=== PATIENT | female | born 2000 | race Hispanic/Latino ===

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

== ENCOUNTER 2020-06-08 21:04 | Emergency (ER) | payer MEDICAID ==
[2020-06-08 21:23] LABS: BASOPHILS % (AUTO) 0.4 % (0.0-5.0); EOSINOPHILS % (AUTO) 1.5 % (0.0-8.0); HEMATOCRIT 32.9 % (36-48); LYMPHOCYTES % (AUTO) 26.7 % (21.0-51.0); MEAN CORPUSCULAR HEMOGLOBIN 24.2 pg (27.0-33.0); MEAN CORPUSCULAR VOLUME 78.1 fL (80-100); MONOCYTES % (AUTO) 6.2 % (3.0-13.0); PLATELET COUNT (AUTO) 297 K/uL (130-400); RED BLOOD CELL COUNT(AUTO) 4.21 MIL/uL (4.00-5.50); RED CELL DISTRIBUTION WIDTH 13.2 % (11.0-15.5); WHITE BLOOD COUNT (AUTO) 10.7 K/uL (4.8-10.8)
[2020-06-08 21:33] LABS: CREATININE 0.6 mg/dL (0.5-1.5); POTASSIUM 3.9 mmol/L (3.5-5.1)
[2020-06-08 21:38] LABS: ALBUMIN 4.1 g/dL (3.5-5.0); BILIRUBIN,TOTAL 0.2 mg/dL (0.2-1.0); TOTAL PROTEIN, SERUM 7.6 g/dL (6.0-8.3)
[2020-06-08] MEDS ORDERED: ORPHENADRINE CITRATE 30 MG/ML ML ONE (21:52)
[2020-06-08] MEDS ORDERED: KETOROLAC TROMETHAMINE 30MG/ML ONE (21:52)
[2020-06-08 21:56] LABS: APPEARANCE,URINE Clear (CLEAR); BILIRUBIN,URINE Negative (NEGATIVE); COLOR,URINE Yellow (YELLOW); GLUCOSE, URINE (UA) Negative (NEGATIVE); KETONES,URINE Negative (NEGATIVE); LEUKOCYTE ESTERASE ,URINE Negative (NEGATIVE); NITRATE,URINE Negative (NEGATIVE); OCCULT BLOOD,URINE Negative (NEGATIVE); PH,URINE 6.5 (5.0-8.0); PROTEIN,URINE Negative (NEGATIVE)
[2020-06-08 21:58] LABS: HCG,QUAL RESULT NEGATIVE (NEGATIVE)
== END 2020-06-08 23:43 | disposition home or self-care (01) ==
LOC: EDH 21:04
DX: M94.0 Chondrocostal junction syndrome [Tietze] (principal); R07.89 Other chest pain
CPT/HCPCS: 36415; 71045; 80053; 81003; 81025; 84484; 85025; 93005; 96374; 96375; 99285; J1885; J2360

== ENCOUNTER → 2021-06-25 | Outpatient (CLI) | payer MEDICAID ==
[~2021-06-25] MED LIST: GADOTERATE MEGLUMINE 10 MMOL/20 ML VIAL IV ONE
== END | disposition home or self-care (01) ==
LOC: RAH 07:47
PROVIDERS: ATTEND Internal Medicine
DX: E22.1 Hyperprolactinemia (principal)
CPT/HCPCS: 70553; A9575

== ENCOUNTER 2024-10-10 21:57 | Emergency (ER) | payer MEDICAID ==
[~2024-10-10] VITALS: Ht 154.9 cm; Wt 52.2 kg
--- NOTE | 2024-10-10 23:00 | ERN ---
ED Note History of Present Illness Stated Complaint: COUGH,FEVER,CHILLS,JITTERING Chief Complaint: Congestion Time Seen by MD: 22:04 Time Seen by Midlevel: 22:45 Dictation: Ms. 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 She reports three days of cough, congestion, fever, chills, body aches, headache, decreased appetite, and nausea. She also reports dental pain right lower molar. She states she has been taking some [id number] cold medicine that she bought at [employer]. She denies having chest pain, palpitations, shortness of breath, abdominal pain, vomiting, diarrhea, dysuria, or dizziness Allergies: Coded Allergies: No Known Drug Allergies (Unverified Allergy, Unknown, 10/10/24) Emergency Care EMERGENCY REGISTRAR: None Past Medical History Past Medical History: Anemia, Other Additional Past Medical Hx: NF1 Surgical History: PSYCH History: no pertinent psych hx Social History: Negative, Lives with family LMP: Oct 10, 2024 RN Note Reviewed/Agreed w/PFSH: Yes Review of System Dictation REVIEW OF SYSTEMS: CONSTITUTIONAL: Patient denies sweats and weight changes. Reports fever, chills, fatigue, general weakness, and body aches EYES: Patient denies any visual symptoms. EARS, NOSE, AND THROAT: No difficulties with hearing. No symptoms of rhinitis or sore throat. Reports nasal congestion. Reports dental pain right lower molar/cracked with cavity CARDIOVASCULAR: Patient denies chest pains, palpitations, orthopnea and paroxysmal nocturnal dyspnea. RESPIRATORY: No dyspnea on exertion, no wheezing or cough. GI: No vomiting, diarrhea, constipation, abdominal pain, hematochezia or melena. Reports nausea : No urinary hesitancy or dribbling. No nocturia or urinary frequency. No abnormal urethral discharge. MUSCULOSKELETAL: No myalgias or arthralgias. NEUROLOGIC: No chronic headaches, no seizures. Patient denies numbness, tingling or weakness. Reports headache PSYCHIATRIC: Patient denies problems with mood disturbance. No problems with anxiety. ENDOCRINE: No excessive urination or excessive thirst. DERMATOLOGIC: Patient denies any rashes or skin changes. Initial Vital Sign VS Vital Signs Date Time Temp Pulse Resp B/P (MAP) Pulse Ox O2 Delivery O2 Flow Rate FiO2 10/10/24 22:29 98.2 76 18 108/73 99 Room Air 0 Physical Exam Dictation Vital signs: Reviewed. Afebrile Constitutional: No acute distress. Non-toxic appearing. Thin. Eating cookies. Head/Face: Normocephalic, atraumatic. Eyes: Periorbital areas with no swelling, redness, or edema. Lids and lashes are normal. Conjunctival injection is absent. Sclera anicteric. Pupils equal, round, reactive to light. ENT: Pinnas intact and no signs of trauma or erythema. Ear canals clear and no discharge. TMs no erythema. No nasal discharge or bleeding noted. Tonsils with erythema/edema; no exudates. Tongue coated white.. Uvula midline. Mucous membranes moist. Neck: Trachea midline, no masses palpated, and no cervical lymphadenopathy. No swelling. Supple, full range of motion. Chest/Axilla: No tenderness, no crepitus, no paradoxical movement, no retractions. Cardiovascular: Regular rate, regular rhythm, no murmur, no gallops. Symmetric pulses. No peripheral edema. Respiratory: Respirations even and unlabored. Lung sounds clear; no wheezes, rales or rhonchi. Room air SpO2 99% Gastrointestinal: Inspection is normal. No distention is appreciated. Bowel sounds are normal. No mass or organomegaly . There is no tenderness. No rebound. No rigidity. No voluntary or involuntary guarding. No Yuen's sign. Neurological: Normal speech, gross motor function intact, gross sensory function intact. No focal weakness/Paresthesia. Musculoskeletal/Extremities: All extremities have full range of motion, no pain or tenderness on palpation. Symmetric pulses. Integumentary: Intact. Skin is flushed, warm and dry. Cap refill less than 2 seconds. Results (Laboratory/Radiology) Laboratory/Radiology Laboratory Tests Test 10/10/24 22:32 Influenza Type A Antigen Negative For Type A Influenza Type B Antigen Negative For Type B SARS-CoV-2 Antigen (Rapid) PRESUMPTIVE NEGATIVE Group A Streptococcus Rapid negative (NEGATIVE) ED Course ED Course Orders Procedure Category Date Status Time Covid19 (Sars Antigen LAB 10/10/24 Complete Rapid) 22:32 Influenza Type A & B, LAB 10/10/24 Complete Rapid 22:32 Rapid (Group A Strep) LAB 10/10/24 Complete 22:32 Vital Signs Date Time Temp Pulse Resp B/P (MAP) Pulse Ox O2 Delivery O2 Flow Rate FiO2 10/10/24 22:29 98.2 76 18 108/73 99 Room Air 0 Uneventful ED course. Vital signs remained stable; afebrile and normotensive with room air SpO2 99-100%. Laboratory findings as noted below. Coronavirus SARs antigen and influenza A/B are negative. Strep negative. She does have a cracked/broken tooth right lower #30 with irritation/swelling to the gumline suggestive of early abscess formation. She received initial dose pen VK. Findings were discussed with patient and all questions were answered. Medical Decision Making MDM MDM: Differential diagnosis: Influenza A/B, COVID, strep Rationale: Tests considered and ordered secondary to shared decision making include: Lab Previous outside records reviewed: Old ER visits. Risk of complication and/or morbidity or mortality of patient management: None Medications-Per medication reconciliation Need for hospitalization: Patient does not meet criteria for hospitalization. Need for emergency major/minor surgery: No There are no social concerns with this patient. Prescription drug management: Ibuprofen, pen VK Prescriptions will include symptomatic care Patient's prior external medical records from other ER visits were reviewed by me as indicated. Prior testing and results from previous visits were reviewed. Prior tests were taken into account with medical decision making and resource utilization, independent historian/historians were used to obtain complete medical history. I independently interpreted the test that were performed, results were reviewed by me and considered findings on radiology if ordered. Medical management and examination interpretation discussions were had by me with other qualified healthcare professionals as indicated for the patient's care. DX & DISP Disposition: Discharge Departure Impression: Primary Impression: Viral upper respiratory illness Additional Impression: Infected dental caries Condition: Stable Scripts Ibuprofen (Ibuprofen) 600 Mg Tablet 600 MG PO q8 hours PRN PRN for PAIN, #12 TAB Prov: MARK ANTHONY MARTINEZ CRIBBER 10/10/24 Penicillin V Potassium (Penicillin V Potassium) 500 Mg Tablet 1 TAB PO TID for 10 Days, #30 TAB 0 Refills Prov: MARK ANTHONY MARTINEZ CRIBBER 10/10/24 Additional Instructions: Rest and isolate at home until symptoms are resolving and you have been fever free times 24 hours. Warm saltwater gargles 3 times a day. Continue with antibiotic pen VK 3 times daily times 10 days. May take ibuprofen every 8 hours as needed for discomfort. You will need to follow up with a dentist. Referrals: MADELINE OGDEN DO (PCP) MARK ANTHONY MARTINEZ NP Oct 10, 2024 22:59
[2024-10-10 23:08] LABS: RAPID GROUP A STREP negative (NEGATIVE)
[2024-10-10 23:15] LABS: INFLUENZA TYPE A Negative For Type A (NEGATIVE); INFLUENZA TYPE B Negative For Type B (NEGATIVE)
[2024-10-10 23:16] LABS: COVID19 (SARS ANTIGEN RAPID) PRESUMPTIVE NEGATIVE (NEGATIVE)
[2024-10-10] MEDS ORDERED: IBUP-2070 PO (23:27)
[2024-10-10] MEDS ORDERED: PENI500T2 PO (23:27)
[2024-10-10] MEDS: PENICILLIN V POTASSIUM 500 MG TABLET PO ONE (23:47)
[2024-10-10 23:50] VITALS: BP 117/65; PULSE 78; RESP 18; TEMP 98.9; O2SAT 98
== END 2024-10-10 23:58 | disposition home or self-care (01) ==
LOC: EDH 21:57
DX: J06.9 Acute upper respiratory infection, unspecified (principal); B97.89 Other viral agents as the cause of diseases classified elsewhere; K04.7 Periapical abscess without sinus; Z20.822 Contact with and (suspected) exposure to COVID-19
CPT/HCPCS: 87426; 87804; 87880; 99284

== ENCOUNTER 2024-12-10 19:00 | Emergency (ER) | payer MEDICAID ==
[~2024-12-10] VITALS: Ht 154.9 cm; Wt 52.2 kg
[~2024-12-10 19:00] MED LIST changes: -GADOTERATE MEGLUMINE 10 MMOL/20 ML VIAL IV ONE; +IBUP-2070 PO; +PENI500T2 PO
--- NOTE | 2024-12-10 19:55 | ERN ---
ED Note History of Present Illness Stated Complaint: LEFT EARACHE Chief Complaint: Earache Time Seen by MD: 19:43 Time Seen by Midlevel: 19:50 Dictation: Ms. Mason is a 24-year-old female with history of neurofibromatosis type 1 and anemia who presented to the emergency department this evening for evaluation of headache. She reports two days of cough, sore throat, headache, and left earache. She thinks she might have had a low grade fever. She denies having shortness of breath, cough, chest pain, palpitations, abdominal pain, nausea, vomiting, diarrhea, dysuria, rash, stiff neck or dizziness. Allergies: Coded Allergies: No Known Drug Allergies (Unverified Allergy, Unknown, 10/10/24) Home Meds Active Scripts Amoxicillin (Amoxicillin) 500 Mg Capsule, 1 CAP PO TID for 10 Days, #30 CAP 0 Refills Prov:MARK ANTHONY MARTINEZ ANNE 12/10/24 Ibuprofen (Ibuprofen) 600 Mg Tablet, 600 MG PO q8 hours PRN PRN for PAIN, #12 TAB 0 Refills Prov:MARK ANTHONY MARTINEZ ANNE 12/10/24 Ibuprofen (Ibuprofen) 600 Mg Tablet, 600 MG PO q8 hours PRN PRN for PAIN, #12 TAB Prov:MARK ANTHONY MARTINEZ PANEL ASSEMBLER 10/10/24 Penicillin V Potassium (Penicillin V Potassium) 500 Mg Tablet, 1 TAB PO TID for 10 Days, #30 TAB 0 Refills Prov:MARK ANTHONY MARTINEZ PANEL ASSEMBLER 10/10/24 Past Medical History Past Medical History: Anemia, Other Additional Past Medical Hx: NF1 Surgical History: PSYCH History: no pertinent psych hx Social History: Negative, Lives with family RN Note Reviewed/Agreed w/PFSH: Yes Review of System Dictation REVIEW OF SYSTEMS: CONSTITUTIONAL: Patient denies chills, sweats and weight changes. States she believes she may have had low-grade fever EYES: Patient denies any visual symptoms. EARS, NOSE, AND THROAT: No difficulties with hearing. No symptoms of rhinitis. Reports sore scratchy throat. Reports left earache; rated 8/10 CARDIOVASCULAR: Patient denies chest pains, palpitations, orthopnea and paroxysmal nocturnal dyspnea. RESPIRATORY: No dyspnea on exertion, no wheezing reports nonproductive cough. GI: No nausea, vomiting, diarrhea, constipation, abdominal pain, hematochezia or melena. : No urinary hesitancy or dribbling. No nocturia or urinary frequency. No abnormal urethral discharge. MUSCULOSKELETAL: No myalgias or arthralgias. NEUROLOGIC: No chronic headaches, no seizures. Patient denies numbness, tingling or weakness. Denies stiff neck. Reports headache PSYCHIATRIC: Patient denies problems with mood disturbance. No problems with anxiety. ENDOCRINE: No excessive urination or excessive thirst. DERMATOLOGIC: Patient denies any rashes or skin changes. Initial Vital Sign VS Vital Signs Date Time Temp Pulse Resp B/P (MAP) Pulse Ox O2 Delivery O2 Flow Rate FiO2 12/10/24 19:01 98.4 82 16 116/81 100 Room Air 12/10/24 19:11 0 21 Physical Exam Dictation Vital signs: Reviewed. Temperature 99.3 Constitutional: No acute distress. Non-toxic appearing. Pleasant Head/Face: Normocephalic, atraumatic. Eyes: Periorbital areas with no swelling, redness, or edema. Lids and lashes are normal. Conjunctival injection is absent. Sclera anicteric. Pupils equal, round, reactive to light. ENT: Pinnas intact and no signs of trauma or erythema. Ear canals clear and no discharge. TMs no erythema. No nasal discharge or bleeding noted. Oropharynx with no exudate, redness, swelling, masses, exudates, or evidence of obstruction. Uvula midline. Mucous membranes moist. Neck: Trachea midline, no masses palpated, and no cervical lymphadenopathy. No swelling. Supple, full range of motion. Chest/Axilla: No tenderness, no crepitus, no paradoxical movement, no retrac tions. Cardiovascular: Regular rate, regular rhythm, no murmur, no gallops. Symmetric pulses. No peripheral edema. Normotensive Respiratory: Respirations even and unlabored. Lung sounds clear; no wheezes, rales or rhonchi. Room air SpO2 100% Gastrointestinal: Inspection is normal. No distention is appreciated. Bowel sounds are normal. No mass or organomegaly . There is no tenderness. No rebound. No rigidity. No voluntary or involuntary guarding. No Yuen's sign. Neurological: Normal speech, gross motor function intact, gross sensory function intact. No focal weakness/Paresthesia. Musculoskeletal/Extremities: All extremities have full range of motion, no pain or tenderness on palpation. Symmetric pulses. Integumentary: No rash Intact. Skin is pale, warm and dry. Cap refill less than 2 seconds. Results (Laboratory/Radiology) Laboratory/Radiology Laboratory Tests Test 12/10/24 20:16 Group A Streptococcus Rapid negative (NEGATIVE) Labs Reviewed?: Yes ED Course ED Course Orders Procedure Category Date Status Time Hydrocodone/Apap PHA 12/10/24 Complete 5/325 ([place] 5/325mg) 20:00 Rapid (Group A Strep) LAB 12/10/24 Complete 20:04 Current Medications Medications (Trade) Dose Ordered Sig/Jacque Route PRN Reason Start Time Stop Time Status Last Admin Dose Admin Acetaminophen/ Hydrocodone Bitart (NORco 5/325MG) 1 tab ONCE ONCE PO 12/10/24 20:00 12/10/24 20:01 DC 12/10/24 20:22 Vital Signs Date Time Temp Pulse Resp B/P (MAP) Pulse Ox O2 Delivery O2 Flow Rate FiO2 12/10/24 20:44 99.0 85 19 131/81 99 Room Air* 0 21 12/10/24 20:00 99.1 83 18 128/78 98 Room Air* 0 21 12/10/24 19:11 99.3 73 17 124/67 100 Room Air* 0 21 12/10/24 19:01 98.4 82 16 116/81 100 Room Air Uneventful ED course. Vital signs remained stable; afebrile and normotensive with room air SpO2 100%. Lung sounds are clear. Strep screen is negative. Patient received dose [place] x1 for severe ear discomfort. She is tolerating p.o. fluids well. Strep screen negative. She will start course of amoxicillin for otitis media. Findings were discussed with patient and all questions were answered. Medical Decision Making MDM MDM: Differential diagnosis: Otitis media, otitis externa, viral illness, pharyngitis Rationale: Tests considered and ordered secondary to shared decision making include: Lab Previous outside records reviewed: Old ER visits. Risk of complication and/or morbidity or mortality of patient management: None Medications-Per medication reconciliation Need for hospitalization: Patient does not meet criteria for hospitalization. Need for emergency major/minor surgery: No There are no social concerns with this patient. Prescription drug management: Amoxicillin, ibuprofen Prescriptions will include symptomatic care Patient's prior external medical records from other ER visits were reviewed by me as indicated. Prior testing and results from previous visits were reviewed. Prior tests were taken into account with medical decision making and resource utilization, independent historian/historians were used to obtain complete medical history. I independently interpreted the test that were performed, results were reviewed by me and considered findings on radiology if ordered. Medical management and examination interpretation discussions were had by me with other qualified healthcare professionals as indicated for the patient's care. DX & DISP Disposition: Discharge Departure Impression: Primary Impression: Otitis media, left Additional Impression: Pharyngitis Condition: Stable Scripts Amoxicillin (Amoxicillin) 500 Mg Capsule 1 CAP PO TID for 10 Days, #30 CAP 0 Refills Prov: MARK ANTHONY MARTINEZ NP 12/10/24 Ibuprofen (Ibuprofen) 600 Mg Tablet 600 MG PO q8 hours PRN PRN for PAIN, #12 TAB 0 Refills Prov: MARK ANTHONY MARTINEZ NP 12/10/24 Additional Instructions: Take [id number] Tylenol or ibuprofen as needed for fever/discomfort. Start amoxicillin. Rest and stay well hydrated. Avoid getting water into the affected ear (use a cotton ball with petroleum jelly when showering if needed). Avoid flying or swimming until symptoms improve. Follow up with your PCP. Return to the emergency department for any worsening of symptoms or concerns. Referrals: MADELINE OGDEN DO (PCP) Time of Disposition: 20:09 MARK ANTHONY MARTINEZ NP December 10, 2024 19:54
[2024-12-10] MEDS ORDERED: AMOX500C2 PO (20:11)
[2024-12-10] MEDS: HYDROcodone/APAP 5/325 1 TAB TABLET PO ONE (20:22)
[2024-12-10 21:50] VITALS: BP 129/87; PULSE 81; RESP 17; TEMP 98.2; O2SAT 98
== END 2024-12-10 22:10 | disposition home or self-care (01) ==
LOC: EDH 19:00
DX: H66.92 Otitis media, unspecified, left ear (principal); J02.9 Acute pharyngitis, unspecified; Z79.899 Other long term (current) drug therapy
CPT/HCPCS: 87880; 99285

== ENCOUNTER 2025-04-11 13:31 | Emergency (ER) | payer MEDICAID ==
[~2025-04-11] VITALS: Ht 154.9 cm; Wt 52.6 kg
[~2025-04-11 13:31] MED LIST changes: +AMOX500C2 PO; +IBUP-1492 PO; -IBUP-2070 PO
--- NOTE | 2025-04-11 13:38 | ERN ---
ED Note History of Present Illness Stated Complaint: CHEST WALL PAIN Chief Complaint: Chest Wall Pain Time Seen by MD: 13:33 Dictation: PATIENT IS A 25-YEAR-OLD FEMALE THAT IS STATES SHE WOKE UP TODAY WAS HAVING SOME CHEST WALL PAIN WORSE WHEN SHE COUGHED OR PRESSES ON IT. HOWEVER SHE SAYS NOW SHE HAS NO COMPLAINTS OTHER THAN SHE JUST FEELS WEAK. SHE DENIES ANY CHEST PAIN BACK PAIN NO NAUSEA VOMITING NO DIARRHEA. NO HEADACHE NO FLU-LIKE SYMPTOMS NO CHANGE IN URINATION. Allergies: Coded Allergies: No Known Drug Allergies (Unverified Allergy, Unknown, 10/10/24) Home Meds Active Scripts Amoxicillin (Amoxicillin) 500 Mg Capsule, 1 CAP PO TID for 10 Days, #30 CAP 0 Refills Prov:MARK ANTHONY MARTINEZ DIRECTOR EMPLOYMENT 12/10/24 Ibuprofen (Ibuprofen) 600 Mg Tablet, 600 MG PO q8 hours PRN PRN for PAIN, #12 TAB 0 Refills Prov:MARK ANTHONY MARTINEZ DIRECTOR EMPLOYMENT 12/10/24 Ibuprofen (Ibuprofen) 600 Mg Tablet, 600 MG PO q8 hours PRN PRN for PAIN, #12 TAB Prov:MARK ANTHONY MARTINEZ DIRECTOR EMPLOYMENT 10/10/24 Penicillin V Potassium (Penicillin V Potassium) 500 Mg Tablet, 1 TAB PO TID for 10 Days, #30 TAB 0 Refills Prov:MARK ANTHONY MARTINEZ DIRECTOR EMPLOYMENT 10/10/24 Past Medical History Past Medical History: Anemia, Other Additional Past Medical Hx: NF1 Surgical History: Social History: Negative, Lives with family History: Not Applicable RN Note Reviewed/Agreed w/PFSH: Yes Review of System Dictation CONSTITUTIONAL: NEGATIVE EXCEPT FOR HPI WEAK HEAD/FACE: NEGATIVE EXCEPT FOR HPI EENT: NEGATIVE EXCEPT FOR HPI RESPIRATORY: NEGATIVE EXCEPT FOR HPI GASTROINTESTINAL/ABDOMINAL: NEGATIVE EXCEPT FOR HPI GENITOURINARY: NEGATIVE EXCEPT FOR HPI MUSCULOSKELETAL: NEGATIVE EXCEPT FOR HPI INTEGUMENTARY: NEGATIVE EXCEPT FOR HPI NEUROLOGICAL/PSYCH: NEGATIVE EXCEPT FOR HPI HEMATOLOGIC/LYMPHATIC: NEGATIVE EXCEPT FOR HPI ALL SYSTEMS NEGATIVE, EXCEPT NOTED ABOVE. 13 POINT REVIEW OF SYSTEMS ASSESSED AND ALL NEGATIVE EXCEPT FOR ABOVE. Initial Vital Sign VS Vital Signs Date Time Temp Pulse Resp B/P (MAP) Pulse Ox O2 Delivery O2 Flow Rate FiO2 04/11/25 13:32 97.7 85 16 112/57 97 Room Air Physical Exam Dictation VITAL SIGNS REVIEWED GENERAL APPEARANCE: ALERT, ORIENTED X 3, NO ACUTE DISTRESS, WELL DEVELOPED, NOURISHED. NO COMPLAINTS OF HEAD AND FACE: NON-TRAUMATIC. EYES: PERRL, PINK CONJUNCTIVAS, EYELID NO TRAUMA, ANTERIOR CHAMBER WITH ARCUS SENILIS. EARS: PINNAS INTACT AND NO SIGNS OF TRAUMA OR ERYTHEMA EAR CANALS CLEAR AND NO DISCHARGE TM NO ERYTHEMA NOSE: NO DISCHARGE, NO BLEEDING. OROPHARYNX: MOUTH NORMAL, TONGUE PINK, PHARYNX CLEAR,NO ERYTHEMA, TONSILS NO EXUDATES, NO ABSCESSES NOTED, MUCOUS MEMBRANE MOIST NECK: SUPPLE, NON-TENDER, NO THYROMEGALY, NO MASSES, NO JVD, NO BRUITS BREAST:DEFERRED CHEST:NO TENDERNESS, NO CREPITUS, NO PARADOXICAL MOVEMENT, NO RETRACTIONS LUNGS:CLEAR, WELL-VENTILATED, SYMMETRIC, NO RALES, NO WHEEZING, NO RHONCHI, NO STRIDOR, GOOD BREATH SOUNDS BILATERALLY HEART: REGULAR RATE, REGULAR RHYTHM, NO MURMUR, NO GALLOPS VASCULAR: NO PERIPHERAL EDEMA, ABDOMEN: SOFT, POSITIVE BOWEL SOUNDS, NONDISTENDED, NO GUARDING, NONTENDER, NO REBOUND, NO MASSES NO HEPATOMEGALY, NO SPLENOMEGALY, NO HADDAD'S SIGN, NO HERNIAS. RECTAL: DEFERRED GENITAL: DEFERRED NEUROLOGICAL: NORMAL SPEECH, MOTOR FUNCTION INTACT, SENSORY FUNCTION INTACT MUSCULOSKELETAL: NECK NONTENDER, FULL RANGE OF MOTION, BACK NONTENDER, FULL RANGE OF MOTION, EXTREMITIES: NONTENDER, FULL RANGE OF MOTION SKIN: COLOR PINK, DRY, NO TURGOR, NO RASH, NO LACERATIONS, NO ABRASIONS, NO CONTUSIONS. LYMPHATIC: DEFERRED Results (Laboratory/Radiology) Laboratory/Radiology Laboratory Tests Test 04/11/25 13:45 Troponin I High Sensitivity < 4 ng/L (4-50) L Labs Reviewed?: Yes EKG Comment: EKG IS SINUS RHYTHM/HEART RATE 7/LEFT FASCICULAR BLOCK NO ECTOPY ED Course ED Course Orders Procedure Category Date Status Time 12 Lead Ekg Tracing- EKG 04/11/25 Logged Technical 13:36 Troponin I High LAB 04/11/25 Complete Sensitivity 13:36 Vital Signs Date Time Temp Pulse Resp B/P (MAP) Pulse Ox O2 Delivery O2 Flow Rate FiO2 04/11/25 13:32 97.7 85 16 112/57 97 Room Air 1450/PATIENT WILL BE DISCHARGED HOME WITH ATYPICAL CHEST PAIN. SHE WILL BE REFERRED TO HER PRIMARY CARE DOCTOR TOMORROW FOR FURTHER WORKUP AND MANAGE HEART Score Response (Comments) Value History: Low suspicion (0) 0 EKG: Repolarization changes 1 Age: < 45yrs (0) 0 Risk Factors: No known risk factors (0) 0 Initial Troponin: Normal limit (0) 0 Total 1 Medical Decision Making MDM MEDICAL DECISION-MAKING BASED ON EKG AND TROPONIN. PATIENT HAS NO COMPLAINTS OF AT THIS TIME. SHE IS AWARE EKG AND TROPONIN NEGATIVE SHE WILL BE WRITTEN OUT OF WORK TO FOLLOW UP WITH HER PRIMARY CARE DOCTOR TOMORROW. DX & DISP Disposition: Discharge Departure Impression: Primary Impression: Atypical chest pain Condition: Stable Additional Instructions: FOLLOW-UP WITH PRIMARY CARE PROVIDER IN 1 TO 2 DAYS. TAKE MEDICATIONS DIRECTED HERE IN THE EMERGENCY ROOM. OKAY TO CONTINUE HOME MEDICATIONS UNLESS OTHERWISE DISCUSSED DURING YOUR VISIT IN THE EMERGENCY ROOM TODAY. RETURN TO YOUR NEAREST EMERGENCY ROOM IF SYMPTOMS WORSEN OR IF THERE IS NO IMPROVEMENT. CALL 911 IF YOU NEED IMMEDIATE ASSISTANCE. TAKE TYLENOL OR MOTRIN [id number] NEEDED AND IF NO CONTRAINDICATIONS ARE PRESENT. INCREASE ORAL HYDRATION. A WOUND CULTURE OR URINE CULTURE WAS ORDERED HERE IN THE EMERGENCY ROOM DEPARTMENT PLEASE FOLLOW-UP WITH PRIMARY CARE PROVIDER AND ADVISE THEM TO GET REPEAT PORTS FROM OUR FACILITY. IF YOU HAD ANY DANNA WRAP/SPLINTS THAT WERE APPLIED HERE, PLEASE DO NOT REMOVE THEM UNTIL YOU SEE YOUR PRIMARY CARE OR SPECIALTY. NO WORK UNTIL CLEARED BY YOUR PRIMARY CARE DOCTOR IN THE NEXT Referrals: MADELINE OGDEN DO (PCP) Time of Disposition: 14:51 I have reviewed the case, and I agree with, Diagnosis and Plan LENO PHILIPPE NP Apr 11, 2025 13:38
[2025-04-11 15:03] VITALS: BP 118/62; PULSE 82; RESP 16; TEMP 97.7; O2SAT 97
--- NOTE | 2025-04-11 18:28 | EKG ---
[facility] Test Date: 2025-04-11 Test Time: 13:35:44 Pat Name: SILKE ZARAGOZA Department: ED Room: Gender: F Brakes Inspector: [facility] : 2000 Requested By: LENO PHILIPPE Order Number: [id number] Reading MD: Michael Ponce Measurements Intervals [place] Rate: 73 P: 33 OR: 147 QRS: -48 QRSD: 93 T: 36 QT: 379 QTc: 418 Interpretive Statements Sinus rhythm LAD, consider left anterior fascicular block Low voltage, precordial leads Compared to ECG 06/08/2020 21:11:50 Low QRS voltage now present Sinus arrhythmia no longer present Electronically Signed On 04-12-2025 14:35:52 CDT by Michael Ponce Please click the below link to view image of tracing.
== END 2025-04-11 15:55 | disposition home or self-care (01) ==
LOC: EDH 13:31
DX: R07.89 Other chest pain (principal); Z79.899 Other long term (current) drug therapy; Z98.890 Other specified postprocedural states
CPT/HCPCS: 84484; 93005; 99284